=== PATIENT | female | born 1955 | race Caucasian/White ===

== ENCOUNTER 2023-02-17 14:43 | Outpatient (CLI) | payer OTHER, SELFPAY | END 2023-02-17 14:44 | disposition home or self-care (01) | PROVIDERS: PCP Emergency Medicine; Visit Provider Emergency Medicine | DX: E78.5 Hyperlipidemia, unspecified (principal); R73.03 Prediabetes; I25.10 Atherosclerotic heart disease of native coronary artery without angina pectoris | CPT/HCPCS: 80053; 80061 ==

== ENCOUNTER 2023-08-03 08:28 | Outpatient (REF) | payer OTHER, SELFPAY | END 2023-08-03 08:29 | disposition home or self-care (01) | LOC: NFLDREF 08:28 | PROVIDERS: PCP Emergency Medicine; Referring Provider Emergency Medicine; Visit Provider Emergency Medicine | DX: E78.2 Mixed hyperlipidemia (principal); R73.03 Prediabetes | CPT/HCPCS: 80053; 80061 ==

== ENCOUNTER 2023-11-02 08:32 | Outpatient (CLI) | payer OTHER, SELFPAY | END 2023-11-02 08:33 | disposition home or self-care (01) | LOC: NFLDREF 11-04 07:39 | PROVIDERS: PCP Emergency Medicine; Referring Provider Emergency Medicine; Visit Provider Emergency Medicine | DX: E78.5 Hyperlipidemia, unspecified (principal); I25.10 Atherosclerotic heart disease of native coronary artery without angina pectoris | CPT/HCPCS: 80061 ==

== ENCOUNTER 2025-08-08 08:30 | Outpatient (CLI) | payer OTHER, SELFPAY | END 2025-08-08 08:31 | disposition home or self-care (01) | LOC: NFLDREF 08-13 17:09 | PROVIDERS: PCP Family Medicine; Referring Provider Family Medicine; Visit Provider Family Medicine | DX: E78.2 Mixed hyperlipidemia (principal) | CPT/HCPCS: 80061 ==